=== PATIENT | female | born 1995 | race Two or more races ===

== ENCOUNTER 2022-12-25 04:10 | Inpatient (IN) | payer MEDICAID ==
[2022-12-23 11:23] LABS: Basophils # (auto) 0 10 ^3/uL (0-0.2); Basophils % (auto) 0.6 % (0.0-2.0); Eosinophils # (auto) 0.1 10 ^3/uL (0-0.8); Eosinophils % (auto) 1.8 % (0.0-7.0); Hematocrit 36.9 % (36.0-46.0); Hemoglobin 12.5 g/dL (12.2-16.2); Lymphocytes # (auto) 1.5 10 ^3/uL (0.4-5.4); Lymphocytes % (auto) 24.6 % (10.0-50.0); Mean Corpuscular Hemoglobin 29.6 pg (28.0-32.0); Mean Corpuscular Hgb Conc. 33.9 g/dL (32.0-36.0); Mean Corpuscular Volume 87.5 fL (80.0-100.0); Monocytes # (auto) 0.3 10 ^3/uL (0-1.3); Monocytes % (auto) 4.9 % (0.0-12.0); Neutrophils % (auto) 68.1 % (37.0-80.0); Nucleated Red Blood Cells % 0.3 %; Red Blood Cells 4.22 10^6/uL (4.0-5.20); Red Cell Distribution Width 14.3 % (11.8-14.3); White Blood Cell 5.9 10^3/uL (4.4-10.8)
[2022-12-23 11:38] LABS: INR 0.87 (0.9-1.15); Partial Thromboplastin Time 27.6 sec (24.6-33.4)
[2022-12-23 11:39] LABS: Potassium 4.1 mmol/L (3.5-5.1)
[2022-12-23 11:51] LABS: Albumin 2.5 g/dL (3.4-5.0); BUN/Creatinine Ratio 17.3 (10.0-20.0); Bilirubin, Total 0.5 mg/dL (0.2-1.0); Calcium 9.2 mg/dL (8.5-10.1)
[2022-12-23 11:52] LABS: Urine Bacteria FEW /hpf (None Seen); Urine Blood Negative /uL (Negative); Urine Mucus FEW (None Seen); Urine Specific Gravity 1.028 (1.001-1.035); Urine WBC 6 /hpf (0 - 5)
[2022-12-23 12:07] LABS: Alcohol, Urine < 3.0 mg/dL (0-10); Amphetamine Screen, Urine NEGATIVE (NEGATIVE); Barbiturate Scree,Urine NEGATIVE (NEGATIVE); Benzodiazephine Screen, Urine NEGATIVE (NEGATIVE); Cannabinoid Screen, Urine NEGATIVE (NEGATIVE); Cocaine Screen, Urine NEGATIVE (NEGATIVE); Opiate Scree,Urine NEGATIVE (NEGATIVE); Phencyclidine Screen, Urine NEGATIVE (NEGATIVE)
[2022-12-24 07:06] LABS: RPR Non Reactive (Non Reactive)
[2022-12-25] VITALS (15 sets, daily range): BP systolic 98–135; BP diastolic 47–76
[~2022-12-25] VITALS: Ht 160 cm; Wt 77.1 kg
[2022-12-25] MEDS ORDERED: ceFAZolin 1GM/50ML 50 ML IV ONE (04:30)
[2022-12-25] MEDS ORDERED: METOCLOPRAMIDE HCL 5MG/ml INJ 2ml VIAL IV ONE (04:30)
[2022-12-25] MEDS ORDERED: SODIUM CITR/CITRIC ACID ORAL SOLN 30 ML PO ONE (04:30)
[2022-12-25] MEDS ORDERED: LACTATED RINGER'S 1,000 ML IV ONE (04:30)
[2022-12-25] MEDS ORDERED: LACTATED RINGER'S 1,000 ML IV SCH (04:30)
[2022-12-25] MEDS ORDERED: PREN-96 PO (05:47)
[2022-12-25] MEDS ORDERED: TETRACAINE 1% INJ 2 ML VIAL IJ ONE ×2 (06:53→06:58)
[2022-12-25] MEDS ORDERED: SODIUM CHLORIDE LOCK 10 ML ONE (06:54)
[2022-12-25] MEDS ORDERED: MORPHINE SULF PF 5 MG/10 ML VIAL ONE (06:54)
[2022-12-25] MEDS ORDERED: EPINEPHrine HCL 1 MG/1 ML AMP ONE (06:54)
[2022-12-25] MEDS ORDERED: fentaNYL CITRATE 100 MCG/2 ML VL ONE (06:54)
[2022-12-25] MEDS ORDERED: oxyTOCIN 10 UNIT/ML 10ML VIAL ONE (06:54)
[2022-12-25] MEDS ORDERED: MIDAZOLAM HCL 2MG/2ML 2ml VIAL (1mg/ml) ONE (06:54)
[2022-12-25] MEDS ORDERED: ONDANSETRON HCL 4 MG/2 ML VIAL ONE (06:54)
[2022-12-25] MEDS ORDERED: DexAMETHasone SOD PHOS 10MG/1ML VIAL INJ ONE (06:54)
[2022-12-25] MEDS ORDERED: ePHEDrine SULFATE 50 MG/ML AMP ONE (06:54)
[2022-12-25] MEDS ORDERED: HYDR-4902 PO (07:26)
[2022-12-25] MEDS ORDERED: IBUP800T27 PO (07:26)
[2022-12-25] MEDS ORDERED: DOCU-94 PO (07:26)
[2022-12-25] MEDS ORDERED: ONDANSETRON HCL 4 MG/2 ML VIAL IV PRN ×2 (07:30→10:45)
[2022-12-25] MEDS ORDERED: LACT. RINGERS/OXYTOCIN 20UNITS 1,000 ML IV ONE ×2 (07:30→10:45)
[2022-12-25] MEDS ORDERED: GUM (CHEWING) 1 GUM CHEW CHEW ONE (07:30)
[2022-12-25] MEDS ORDERED: CARBOPROST TROMETHAMINE 250 MCG/1ML VIAL IM ONE (08:00)
[2022-12-25] MEDS ORDERED: diphenhdrAMINE HCL 50 MG/1 ML VL IV PRN (09:00)
[2022-12-25] MEDS ORDERED: NALOXONE HCL 0.4 MG/ML VIAL IV PRN (09:00)
[2022-12-25] MEDS ORDERED: MORPHINE SULFATE INJ 2 MG/ml SYRG IV PRN (09:00)
[2022-12-25] MEDS ORDERED: HYDROmorphone HCL 2 MG/ML VL/or syr IV PRN ×2 (09:00)
[2022-12-25] MEDS ORDERED: METOCLOPRAMIDE HCL 5MG/ml INJ 2ml VIAL IV PRN (09:00)
[2022-12-25] MEDS ORDERED: ACETAMINOPHEN IV 1000 MG/100ML (10MG/ML) IV PRN (10:45)
[2022-12-25] MEDS ORDERED: MORPHINE SULFATE 4 MG/ML SYR/VIAL IV PRN (10:45)
[2022-12-25] MEDS: ceFAZolin 1GM/50ML 50 ML IV SCH (16:01)
[2022-12-25] MEDS: ACETAMINOPHEN IV 1000 MG/100ML (10MG/ML) IV PRN (21:51)
[2022-12-25 23:42] LABS: Basophils # (auto) 0.1 10 ^3/uL (0-0.2); Basophils % (auto) 0.6 % (0.0-2.0); Eosinophils # (auto) 0 10 ^3/uL (0-0.8); Eosinophils % (auto) 0.1 % (0.0-7.0); Hematocrit 32.3 % (36.0-46.0); Lymphocytes # (auto) 1.6 10 ^3/uL (0.4-5.4); Lymphocytes % (auto) 14.4 % (10.0-50.0); Mean Corpuscular Hemoglobin 29.8 pg (28.0-32.0); Mean Corpuscular Hgb Conc. 34.1 g/dL (32.0-36.0); Mean Corpuscular Volume 87.4 fL (80.0-100.0); Monocytes # (auto) 0.5 10 ^3/uL (0-1.3); Neutrophils # (auto) 8.7 10 ^3/uL (1.6-8.6); Neutrophils % (auto) 79.9 % (37.0-80.0); Nucleated Red Blood Cells % 0.1 %; Red Blood Cells 3.69 10^6/uL (4.0-5.20); Red Cell Distribution Width 14.4 % (11.8-14.3); White Blood Cell 10.8 10^3/uL (4.4-10.8)
[2022-12-26] MEDS: ceFAZolin 1GM/50ML 50 ML IV SCH (01:13)
[2022-12-26 03:00] VITALS: BP 104/66
[2022-12-26] MEDS ORDERED: HYDROcodone-ACET 5/325MG TAB PO PRN ×3 (03:15→11:00)
[2022-12-26] MEDS: SIMETHICONE 80 MG CHEWABLE TABLET PO SCH ×4 (05:45→22:27)
[2022-12-26] MEDS: ACETAMINOPHEN IV 1000 MG/100ML (10MG/ML) IV PRN (05:45)
[2022-12-26 07:00] VITALS: BP 98/59
[2022-12-26 07:02] LABS: Basophils # (auto) 0.1 10 ^3/uL (0-0.2); Basophils % (auto) 0.7 % (0.0-2.0); Eosinophils # (auto) 0 10 ^3/uL (0-0.8); Eosinophils % (auto) 0.4 % (0.0-7.0); Hematocrit 31.3 % (36.0-46.0); Hemoglobin 10.6 g/dL (12.2-16.2); Lymphocytes # (auto) 2.5 10 ^3/uL (0.4-5.4); Lymphocytes % (auto) 23.7 % (10.0-50.0); Mean Corpuscular Hemoglobin 29.7 pg (28.0-32.0); Mean Corpuscular Hgb Conc. 33.9 g/dL (32.0-36.0); Mean Corpuscular Volume 87.3 fL (80.0-100.0); Monocytes # (auto) 0.5 10 ^3/uL (0-1.3); Monocytes % (auto) 4.6 % (0.0-12.0); Neutrophils # (auto) 7.3 10 ^3/uL (1.6-8.6); Neutrophils % (auto) 70.6 % (37.0-80.0); Nucleated Red Blood Cells % 0.1 %; Red Blood Cells 3.58 10^6/uL (4.0-5.20); Red Cell Distribution Width 14.4 % (11.8-14.3); White Blood Cell 10.4 10^3/uL (4.4-10.8)
[2022-12-26] MEDS: DOCUSATE SOD 100 MG CAP PO SCH ×2 (10:13→22:27)
[2022-12-26] MEDS: DOCUSATE CALCIUM 240 MG CAP PO SCH (10:13)
[2022-12-26] MEDS: HYDROcodone-ACET 5/325MG TAB PO PRN ×2 (10:14→16:45)
[2022-12-26 11:00] VITALS: BP 96/62
[2022-12-26] MEDS: IBUPROFEN 800 MG TAB PO PRN ×2 (11:55→22:26)
[2022-12-26 15:00] VITALS: BP 108/53
[2022-12-26 18:35] VITALS: BP 96/58
[2022-12-26] MEDS ORDERED: PREN-96 PO (20:30)
[2022-12-26] MEDS ORDERED: FERR325T48 PO (20:30)
[2022-12-26 22:45] VITALS: BP 115/71
[2022-12-27 02:53] VITALS: BP 116/69
[2022-12-27] MEDS: SIMETHICONE 80 MG CHEWABLE TABLET PO SCH (06:00)
[2022-12-27] MEDS: IBUPROFEN 800 MG TAB PO PRN (06:41)
[2022-12-27 07:02] VITALS: BP 100/69
[2022-12-27] MEDS: DOCUSATE CALCIUM 240 MG CAP PO SCH (09:31)
[2022-12-27] MEDS: DOCUSATE SOD 100 MG CAP PO SCH (09:31)
[2022-12-27 10:45] VITALS: BP 100/62
[2022-12-27 11:33] VITALS: BP 100/62
== END 2022-12-27 11:33 | disposition home or self-care (01) | DRG 540 ==
LOC: EDBD → LDRP 04:10
PROVIDERS: ADMIT Obstetrics & Gynecology; ATTEND Obstetrics & Gynecology
PROC: 10D00Z1 Extraction of Products of Conception, Low, Open Approach (ICD-10-PCS; principal; 2022-12-25 07:18)
DX: O26.62 Liver and biliary tract disorders in childbirth (principal); K83.1 Obstruction of bile duct; O34.219 Maternal care for unspecified type scar from previous cesarean delivery; Z3A.38 38 weeks gestation of pregnancy; Z37.0 Single live birth
CPT/HCPCS: 36415; 59025; 80053; 80307; 81001; 85025; 85610; 85730; 86592; 86850; 86900; 86901; 94760; 96360; 96361; 96365; 96366; G0378; J0131; J0171; J0690; J1100; J2250; J2405; J2590

== ENCOUNTER 2024-08-06 21:45 | Emergency (ER) | payer MEDICAID ==
[~2024-08-06] VITALS: Ht 160 cm; Wt 59.6 kg
[~2024-08-06 21:45] MED LIST: DOCU-94 PO; FERR325T48 PO; HYDR-4902 PO; IBUP-1456 PO; PREN-96 PO
[2024-08-06 22:10] LABS: Urine Bacteria None Seen /hpf (None Seen)
[2024-08-06 22:15] LABS: Urine Blood Negative /uL (Negative); Urine Clarity Clear (Clear); Urine Color Yellow (Yellow); Urine Mucus FEW (None Seen); Urine Protein, UAD TRACE (Negative); Urine Specific Gravity 1.035 (1.001-1.035); Urine Squamous Epithelial Cell FEW /hpf (<5); Urine Urobilinogen Normal (Negative); Urine WBC <1 /hpf (0 - 5); Urine pH 5.5 (5.0-9.0)
--- NOTE | 2024-08-06 22:22 | ED.PDOC ---
GI ASSESSMENT HPI Comments 29-year-old female who came to ER for abdominal pain. Patient states for the past 2 days, she has been having cramping, intermittent, epigastric abdominal pain, nonradiating, associated multiple bouts of nausea, vomiting, and loose nonbloody diarrhea. Persistence of symptoms with generalized weakness from the patient to come to the ER Chief Complaint: Abdominal Pain Time Seen by MD: 22:21 Reviewed Notes: Nurses Notes Allergies: Coded Allergies: NO KNOWN ALLERGIES (Unverified , 12/25/22) Home Meds Active Scripts Loperamide Hcl (Imodium) 2 Mg Cp, 2 MG PO Q4HP PRN for 7 Days, #30 CAP Prov:CHARLES LEWIS MD 08/06/24 Ondansetron HCl (Ondansetron Hydrochloride) 8 Mg Tab, 8 MG PO Q6HP PRN for 10 Days, #40 TAB Prov:CHARLES LEWIS MD 08/06/24 Ferrous Gluconate (Fe Gluconate) 239 Mg Tab, 239 MG PO DAILY for 30 Days, #30 TAB 3 Refills Prov:SAEED LIVINGSTON CNM 12/26/22 Vit W/ Ferrous Fumara ( One Daily) Daily Tab, 1 TAB PO DAILY, #90 TAB 3 Refills Prov:SAEED LIVINGSTON CNM 12/26/22 Ibuprofen (Ibuprofen) 800 Mg Tab, 800 MG PO TID PRN for 15 Days, #40 TAB Prov:GERMAN NIELSON DO 12/25/22 Hydrocodone-Acetaminophen (Hydrocodone Bitartrate/AC 5-325 mg) 1 Tab Tab, 1 TAB PO Q6HPRN PRN for 5 Days, #20 TAB Prov:GERMAN NIELSON DO 12/25/22 Docusate Sodium (Colace) 100 Mg Cap, 1 CAP PO BID, #60 CAP 2 Refills Prov:GERMAN NIELSON DO 12/25/22 Information Source: Patient Mode of Arrival: Ambulatory Timing: Days Duration: Since onset Prehospital treatment: None Quality: Aching, Cramping Vomitus: Watery Stool: Loose, Watery Severity: Moderate Recent: None Recent Hx of: None Pain Location: Epigastric Modifying Factors: Nothing Associated sign and symptoms: Nausea, Vomiting, Diarrhea, Abdominal Pain Past Medical History PAST MEDICAL HISTORY: Denies 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 Family History Family History: Reviewed,noncontributory to illness Social History Smoker: Non-Smoker Alcohol: Denies ETOH Use Drugs: Denies Drug Use Lives In: Home Constitutional: reports: diaphoresis; denies: chills, fatigue, fever, malaise, sweats, weakness, others EENTM: denies: blurred vision, double vision, ear bleeding, ear discharge, ear drainage, ear pain, ear ringing, eye pain, eye redness, hearing loss, mouth pain, mouth swelling, nasal discharge, nose bleeding, nose congestion, nose pain, photophobia, tearing, throat pain, throat swelling, voice changes, others Respiratory: denies: cough, hemoptysis, orthopnea, SOB at rest, shortness of breath, SOB with excertion, stridor, wheezing, others Cardiovascular: denies: chest pain, dizzy spells, diaphoresis, Dyspnea on exertion, edema, irregular heart beat, left arm pain, lightheadedness, palpitations, PND, syncope, others Gastrointestinal: reports: abdominal pain, diarrhea, nausea, vomiting; denies: abdomen distended, blood streaked bowels, constipated, dysphagia, difficulty swallowing, hematemesis, melena, poor appetite, poor fluid intake, rectal bleeding, rectal pain, others Genitourinary: denies: abnormal vagina bleeding, burning, dyspareunia, dysuria, flank pain, frequency, hematuria, incontinence, pain, , vagina discharge, urgency, others Neurological: denies: dizziness, fainting, headache, left sided numbness, left sided weakness, numbness, paresthesia, pre-existing deficit, right sided numbness, right sided weakness, seizure, speech problems, tingling, tremors, weakness, others Musculoskeletal: denies: back pain, gout, joint pain, joint swelling, muscle pain, muscle stiffness, neck pain, others Integumetry: denies: bruises, change in color, change in hair/nails, dryness, laceration, lesions, lumps, rash, wounds, others Allergic/Immunocompromised: denies: Difficulty Healing, Frequent Infections, Hives, Itching, others Hematologic/Lymphatic: denies: anemia, blood clots, easy bleeding, easy bruising, swollen glands, others Endocrine: denies: excessive hunger, excessive sweating, excessive thirst, excessive urination, flushing, intolerance to cold, intolerance to heat, unexplained weight gain, unexplained weight loss, others Psychiatric: denies: anxiety, bipolar disorder, depression, hopeless, panic disorder, schizophrenia, sleepless, suicidal, others Physical Exam General Appearance: No Apparent Distress, Normal HEENT: Normal ENT Inspection, Pharynx Normal, TMs Normal Neck: Full Range of Motion, Non-Tender, Normal, Normal Inspection Respiratory: Chest Non-Tender, Lungs Clear, No Accessory Muscle Use, No Respiratory Distress, Normal Breath Sounds Cardiovascular: No Edema, No JVD, No Murmur, No Gallop, Normal Peripheral Pulses, Regular Rate/Rhythm Breast Exam: Deferred Gastrointestinal: No Organomegaly, Non Tender, No Pulsatile Mass, Normal Bowel Sounds, Soft Genitalia: Deferred Pelvic: Deferred Rectal: Deferred Extremities: No calf tenderness, Normal capillary refill, Normal inspection, Normal range of motion, Non-tender, No pedal edema Musculoskeletal : Apperance: Normal Neurologic: Alert, classroom assistant II-XII nml as Tested, No Motor Deficits, Normal Affect, Normal Mood, No Sensory Deficits Cerebellar Function: Normal Reflexes: Normal Skin: Dry, Normal Color, Warm Lymphatic: No Adenopathy Was a procedure done? Was a procedure done?: No GI differential Dx Differential Diagnosis: Diverticular disease, Gastritis/PUD, Gastroenteritis, UTI, Dehydration, Electrolyte Imbalance X-Ray, Labs, Meds, VS Vital Signs Date Time Temp Pulse Resp B/P (MAP) Pulse Ox O2 Delivery O2 Flow Rate FiO2 08/07/24 01:24 65 16 99 Room Air* 0 21 08/07/24 01:23 97.7 65 16 100/57 (71) 99 97.7 08/06/24 21:48 98.3 107 16 100/62 (75) 97 Lab Test 08/06/24 22:41 08/06/24 22:09 Range/Units White Blood Count 8.3 4.4-10.8 10^3/uL Red Blood Count 4.66 4.0-5.20 10^6/uL Hemoglobin 14.2 12.2-16.2 g/dL Hematocrit 41.4 36.0-46.0 % Mean Corpuscular Volume 88.9 80.0-100.0 fL Mean Corpuscular Hemoglobin 30.4 28.0-32.0 pg Mean Corpuscular Hemoglobin Concent 34.2 32.0-36.0 g/dL Red Cell Distribution Width 13.2 11.8-14.3 % Platelet Count 276 140-450 10^3/uL Mean Platelet Volume 7.3 6.9-10.8 fL Neutrophils (%) (Auto) 89.7 H 37.0-80.0 % Lymphocytes (%) (Auto) 7.3 L 10.0-50.0 % Monocytes (%) (Auto) 2.8 0.0-12.0 % Eosinophils (%) (Auto) 0.1 0.0-7.0 % Basophils (%) (Auto) 0.1 0.0-2.0 % Neutrophils # (Auto) 7.5 1.6-8.6 10 ^3/uL Lymphocytes # (Auto) 0.6 0.4-5.4 10 ^3/uL Monocytes # (Auto) 0.2 0-1.3 10 ^3/uL Eosinophils # (Auto) 0 0-0.8 10 ^3/uL Basophils # (Auto) 0 0-0.2 10 ^3/uL Nucleated Red Blood Cells 0.0 % Sodium Level 139 136-145 mmol/L Potassium Level 3.5 3.5-5.1 mmol/L Chloride Level 107 98-107 mmol/L Carbon Dioxide Level 23 20-31 mmol/L Anion Gap 9 5-15 Blood Urea Nitrogen 9 9-23 mg/dL Creatinine 0.75 0.550-1.02 mg/dL Glomerular Filtration Rate Calc 110 >90 mL/min BUN/Creatinine Ratio 12.0 10.0-20.0 Serum Glucose 124 H 74-106 mg/dL Calcium Level 9.5 8.7-10.4 mg/dL Total Bilirubin 1.2 H 0.2-1.0 mg/dL Aspartate Amino Transferase (AST) 27 13-40 U/L Alanine Aminotransferase (ALT) 50 H 7-40 U/L Alkaline Phosphatase 63 46-116 U/L Total Protein 8.3 H 5.7-8.2 g/dL Albumin 5.1 H 3.2-4.8 g/dL Lipase 54 H 12-53 U/L Beta HCG, Quantitative < 0.0 L 1.5-4.2 mIU/mL Urine Color Yellow Yellow Urine Clarity Clear Clear Urine pH 5.5 5.0-9.0 Urine Specific [place] 1.035 1.001-1.035 Urine Protein Trace H Negative Urine Ketones 1+ H Negative Urine Blood Negative Negative /uL Urine Nitrite Negative Negative Urine Bilirubin Negative Negative Urine Urobilinogen Normal Negative mg/dL Urine Leukocyte Esterase Negative Negative /uL Urine RBC 1 0 - 4 /hpf Urine WBC <1 0 - 5 /hpf Urine Squamous Epithelial Cells Few <5 /hpf Urine Bacteria None seen None Seen /hpf Urine Mucus Few None Seen Urine Glucose Normal Normal mg/dL Current Medications Medications (Trade) Dose Ordered Sig/Reshma Route Start Time Stop Time Status Last Admin Ondansetron HCl (Zofran) 4 mg ONCE ONCE IV 08/06/24 22:30 08/06/24 22:31 DC 08/07/24 01:10 Sodium Chloride 1,000 ml @ 1,000 mls/hr Q1H ONCE IVB 08/06/24 22:30 08/06/24 23:29 DC 08/07/24 01:11 Loperamide HCl (Imodium Capsule) 4 mg ONCE ONCE PO 08/06/24 23:45 08/06/24 23:46 DC 08/07/24 01:10 Time of 1ST Reevaluation: 22:19 Reevaluation 1ST: Unchanged Time of 2ND Reevaluation: 23:00 Reevaluation 2ND: Improved Patient Education/Counseling: Diagnosis, Treatment Family Education/Counseling: No Family Present Departure 1 Departure Time of Disposition: 23:33 Impression: Primary Impression: Nausea, vomiting and diarrhea Additional Impression: Dehydration Disposition: 01 HOME / SELF CARE / HOMELESS Condition: Stable e-Prescriptions Loperamide Hcl (Imodium) 2 Mg Cp 2 MG PO Q4HP PRN for 7 Days, #30 CAP Prov: CHARLES LEWIS MD 08/06/24 Ondansetron HCl (Ondansetron Hydrochloride) 8 Mg Tab 8 MG PO Q6HP PRN for 10 Days, #40 TAB Prov: CHARLES LEWIS MD 08/06/24 Critical Care Note Critical Care Time?: No Stability Stability form required: No Heart Score Heart Score: Heart Score Response (Comments) Value History N/A 0 EKG N/A 0 Age N/A 0 Risk Factors N/A 0 Troponin N/A 0 Total 0 I personally scribed for CHARLES LEWIS MD ([email or web address]) on 08/06/24 at 22:22. Electronically submitted by Michael Ramirez ([email or web address]). CHARLES LEWIS MD Aug 06, 2024 22:22
[2024-08-06 22:49] LABS: Basophils # (auto) 0 10 ^3/uL (0-0.2); Basophils % (auto) 0.1 % (0.0-2.0); Eosinophils # (auto) 0 10 ^3/uL (0-0.8); Eosinophils % (auto) 0.1 % (0.0-7.0); Hematocrit 41.4 % (36.0-46.0); Hemoglobin 14.2 g/dL (12.2-16.2); Lymphocytes # (auto) 0.6 10 ^3/uL (0.4-5.4); Lymphocytes % (auto) 7.3 % (10.0-50.0); Mean Corpuscular Hemoglobin 30.4 pg (28.0-32.0); Mean Corpuscular Hgb Conc. 34.2 g/dL (32.0-36.0); Mean Corpuscular Volume 88.9 fL (80.0-100.0); Monocytes # (auto) 0.2 10 ^3/uL (0-1.3); Monocytes % (auto) 2.8 % (0.0-12.0); Neutrophils # (auto) 7.5 10 ^3/uL (1.6-8.6); Neutrophils % (auto) 89.7 % (37.0-80.0); Platelet Count (auto) 276 10^3/uL (140-450); Red Blood Cells 4.66 10^6/uL (4.0-5.20); Red Cell Distribution Width 13.2 % (11.8-14.3); White Blood Cell 8.3 10^3/uL (4.4-10.8)
[2024-08-06 23:10] LABS: Alanine Aminotransferase 50 U/L (7-40); Albumin 5.1 g/dL (3.2-4.8); Alkaline Phosphatase 63 U/L (46-116); Anion Gap 9 (5-15); Aspartate Aminotransferase 27 U/L (13-40); Bilirubin, Total 1.2 mg/dL (0.2-1.0); Blood Urea Nitrogen 9 mg/dL (9-23); Calcium 9.5 mg/dL (8.7-10.4); Carbon Dioxide 23 mmol/L (20-31); Chloride 107 mmol/L (98-107); Glucose 124 mg/dL (74-106); Lipase 54 U/L (12-53); Potassium 3.5 mmol/L (3.5-5.1); Sodium 139 mmol/L (136-145); Total Protein 8.3 g/dL (5.7-8.2)
[2024-08-06] MEDS ORDERED: LOPE2CAP16 PO (23:31)
[2024-08-06] MEDS ORDERED: ONDA-180 PO (23:31)
[2024-08-07] MEDS: ONDANSETRON HCL 4 MG/2 ML VIAL IV ONE (01:10)
[2024-08-07] MEDS: LOPERAMIDE HCL 2 MG CAP/TAB PO ONE (01:10)
[2024-08-07] MEDS: MORPHINE SULFATE 4 MG/ML SYR/VIAL IV ONE (01:11)
[2024-08-07] MEDS: SODIUM CHLORIDE 0.9% 1,000 ML IVB ONE (01:11)
[2024-08-07 01:23] VITALS: BP 100/57; TEMP 97.7
[2024-08-07 01:24] VITALS: PULSE 65; RESP 16; O2SAT 99
== END 2024-08-07 02:45 | disposition home or self-care (01) ==
LOC: ER 21:45
DX: E86.0 Dehydration (principal); R19.7 Diarrhea, unspecified
CPT/HCPCS: 36415; 80053; 81001; 83690; 84702; 85025; 96361; 96374; 99283; J2405; J7030